=== PATIENT | female | born 1970 | race Two or more races ===

== ENCOUNTER → 2021-06-29 | Outpatient (CLI) | payer OTHER ==
[~2021-06-29] MED LIST: CONTRAST GIVEN. MC PRN; IOHEXOL 240 MG/ML 50ML VIAL. PO ONE; IOHEXOL 300 MG/ML 100ML VIAL. IV ONE
--- NOTE | 2021-06-29 10:12 | RAD ---
EXAMINATION: US ABDOMEN COMPLETE 06/29/2021 9:47 AM INDICATION: Abdominal pain TECHNIQUE: Hendricks scale and color Doppler ultrasound images of the abdomen were obtained. COMPARISON: None. FINDINGS: Liver: The liver is normal in size measuring 12 cm in length. Mildly increased hepatic echogenicity. No focal liver lesion. Gallbladder: The gallbladder is normal in caliber. No cholelithiasis or sludge. The gallbladder wa ll is normal in thickness measuring 1.7 mm. Bile ducts: The common bile duct is normal measuring 4 mm. No intrahepatic biliary duct dilatation. Kidneys: The right kidney measures 9.8 x 4.6 x 4.5 cm. The left kidney measures 9.9 x 5.3 x 4.0 cm. Normal cortical thickness and echogenicity bilaterally. No hydronephrosis. Spleen: Spleen is normal measuring 9.6 cm. Other: Abdominal aorta, inferior vena cava, and pancreas are obscured by bowel gas. IMPRESSION: 1. Mild hepatic steatosis. 2. Aorta, IVC, and pancreas are obscured by bowel gas. Electronically signed by: Glo Hughes MD (06/29/2021 10:09 AM) [id number]
--- NOTE | 2021-06-29 12:00 | RAD ---
EXAMINATION: CT ABDOMEN+PELVIS W CLINICAL HISTORY: ABNORMAL LEVELS OF OTHER SERUM ENZYMES TECHNIQUE: CT of the abdomen and pelvis was performed using standard technique, scanning from just ab ove the dome of the diaphragm to the symphysis pubis following administration of intravenous contrast . CT Dose Reduction Employed: One or more of the following individualized dose reduction techniques wer e utilized for this examination: 1. Automated exposure control 2. Adjustment of the mA and/or kV ac cording to patient size 3. Use of iterative reconstruction technique. COMPARISON: Abdominal ultrasound same day, CT abdomen/pelvis 04/26/2017 FINDINGS: Visualized heart and lungs unremarkable. Several subcentimeter hypoenhancing foci in the liver, too small adequately characterize but similar to prior study. No evidence of hepatic steatosis. 1.3 cm right adrenal lesion, incompletely evaluated but may represent an adenoma. On comparison CT, this appears similar on the coronal images but is po vincent visualized on the axial images. Gallbladder, pancreas, spleen, and kidneys unremarkable. Nondiagnostic evaluation of the nondistended urinary bladder. Uterus and ovaries unremarkable on limi misty evaluation. No bowel dilation or definite wall thickening. Appendectomy. No abdominal aortic or iliac artery aneurysm. No evidence of acute osseous abnormality. IMPRESSION: No evidence of acute abdominopelvic abnormality. 1.3 cm right adrenal lesion, incompletely evaluated but may represent a benign adenoma. Adrenal ryan col CT/MRI with intravenous contrast could be obtained for further evaluation if indicated. Electronically signed by: Brenton Espino DO (06/29/2021 11:58 AM) [facility]
== END ==
LOC: CT 09:27
PROVIDERS: ATTEND Internal Medicine Gastroenterology
DX: K76.0 Fatty (change of) liver, not elsewhere classified (principal); E27.8 Other specified disorders of adrenal gland; R74.8 Abnormal levels of other serum enzymes
CPT/HCPCS: 74177; 76700; Q9966; Q9967